=== PATIENT | female | born 1985 | race Caucasian/White ===

== ENCOUNTER 2017-08-26 23:04 | Inpatient (IN) | payer OTHER ==
[~2017-08-26] VITALS: Ht 162.6 cm; Wt 85.5 kg
--- NOTE | ~2017-08-26 | O ---
[facility] [place] [address] OPERATIVE REPORT Name: JANUSZ SOTOMAYOR Room #: 423-1 [facility] IN M.R.#: [id number] Admission: 08/27/17 Attend Phys: Jamaal Alberto Discharge: 08/30/17 Date of : 81 Report #: [id number] THIS REPORT FOR: //name// CC: Dr Priya Torrez DATE OF SERVICE: 08/29/2017 PREOPERATIVE DIAGNOSES: 1. Biliary colic with dyskinesia. 2. Anxiety. 3. Constipation. 4. Chronic pain. 5. Gastroparesis POSTOPERATIVE DIAGNOSES: 1. Biliary colic with dyskinesia, chronic cholecystitis, and gallbladder cholesterolosis. 2. Anxiety. 3. Constipation. 4. Chronic pain. 5. Gastroparesis SURGEON: Mark Adames MD ENERGY TECHNICIAN: CLARITZA Salmon. PROCEDURE: Laparoscopic cholecystectomy with intraoperative cholangiogram. ANESTHESIA: General endotracheal anesthesia and local anesthetic. ESTIMATED BLOOD LOSS: 5 mL. SPECIMEN: Gallbladder. COMPLICATIONS: None appreciated. INDICATIONS FOR PROCEDURE: This is a 31-year-old female patient with history of gastroparesis with a 4-month history of progressive right-sided abdominal pain, radiating to her right flank. Her pain has been constant, but is worsened around her menstrual periods. She has also had low-grade fever for which she has been taking ibuprofen. In addition to this, she complains of nausea, vomiting and postprandial bloating. A CT of the abdomen and pelvis and abdominal ultrasound were essentially normal with no evidence for gallstones. Recent transvaginal and pelvic ultrasound was essentially negative. [facility] [address] [place] [address] OPERATIVE REPORT Name: JANUSZ SOTOMAYOR Room #: 423-1 [facility] IN M.R.#: [id number] Admission: 08/27/17 Attend Phys: Jamaal Alberto Discharge: 08/30/17 Date of : 81 Report #: [id number] patient underwent a PIPIDA scan showing a low gallbladder ejection fraction of 18% with reproduction of her symptoms with the CCK. The patient presents now for laparoscopic cholecystectomy with cholangiogram. OPERATIVE FINDINGS: Upon entrance into the abdominal cavity, the liver, stomach, small bowel and colon in the surrounding area appeared otherwise normal. The gallbladder itself appeared to be chronically inflamed with omental adhesions to the gallbladder with no acute inflammatory changes. The critical view consisting of the cystic artery, cystic duct and lower edge of the gallbladder forming a window through which the liver was visible was seen prior to clipping the cystic duct for cholangiogram. The cholangiogram showed no filling defects and free flow of contrast into the duodenal sweep without biliary ductal dilatation. Three clips remained on the cystic duct stump after its division; one clip remained on the cystic artery stump as well. No other significant intra-abdominal pathology was seen. There was no evidence for iatrogenic injury. The small bowel and colon in the pelvis appeared normal. There was no evidence for an abdominal wall hernia. The gallbladder was opened on the back table, whereby no gallstones were present and cholesterolosis was evident. DESCRIPTION OF PROCEDURE IN DETAIL: After the risks, benefits and expectations of the operation were discussed in detail with the patient, informed consent was obtained. The patient was identified in the preoperative holding area. She was given IV antibiotics as documented in the chart in line with SCIP metrics. The patient was then taken to the operating room and she was placed in the supine position. SCDs were placed on the patient's bilateral lower extremities and pneumatic compression was initiated. The patient was then given IV sedation and she was intubated without incident. A time-out was performed to identify the correct patient and procedure. Local anesthetic was infiltrated into the skin and subcutaneous tissue supraumbilically several centimeters above the umbilicus where a vertical incision was made. Dissection was carried down to the fascia. The 11 mm Visiport was then placed intraperitoneally with a 0-degree angled laparoscope. Pneumoperitoneum was achieved with insufflation of carbon dioxide to 15 mmHg. A 30-degree angled laparoscope was then inserted. A subxiphoid 5 mm and right subcostal 5 mm ports x 2 were placed under direct visualization after local anesthetic was infiltrated into the skin and subcutaneous tissue and appropriately sized incisions were made. Operative findings were as noted above. The dome of the gallbladder was retracted in a cephalad direction. The omental adhesions to gallbladder were carefully taken down with the ultrasonic dissector. The gallbladder peritoneum was then scored medially and laterally with the ultrasonic dissector. Dissection was carried out around the cystic artery and cystic duct to identify both structures as the only two structures [address] [address] OPERATIVE REPORT Name: JANUSZ SOTOMAYOR Room #: 423-1 [facility] IN M.R.#: [id number] Admission: 08/27/17 Attend Phys: Jamaal Alberto Discharge: 08/30/17 Date of : 81 Report #: [id number] entering the gallbladder. The critical view of safety as described above was seen. A clip was then placed on the cystic duct at its junction with the neck of the gallbladder. A ductotomy was created and cholangiogram was inserted. Cholangiogram findings are as noted above. The cholangiocatheter was then removed and the cystic duct was triply clipped distal to the ductotomy. The duct was divided at the ductotomy site with the ultrasonic dissector with a good seal. The cystic artery was singly clipped and divided leaving a single clip on the cystic artery stump. Division of the artery was with the ultrasonic dissector as well with good hemostasis. The gallbladder was then dissected out of the liver bed without entrance into the gallbladder or liver bed. The gallbladder was detached from the liver, placed in an Endopouch and removed through the supraumbilical port. An 0 PDS suture was then placed with the [place]-Merle laparoscopic fascial closure device under direct visualization. The suture was tagged and the port was replaced. The liver bed was reexamined for hemostasis. The abdominal cavity was then briefly surveyed and no pathology was seen. The 11 mm port was then removed and the suture was tied under direct visualization to ensure no incorporation of intra-abdominal content. The abdominal cavity was then desufflated and the remaining ports were removed. Interrupted subcuticular 4-0 Monocryl sutures and Dermabond were used to close the skin incisions. The patient tolerated the procedure well. She was awakened, extubated, and taken to recovery room in stable condition with no apparent intraoperative complications. <ELECTRONICALLY SIGNED> By: Mark Adames MD, FACS 08/30/172003 [id number] Mark Adames MD, FACS /nt
[2017-08-26 23:19] VITALS: BP 143/92
[2017-08-26 23:31] LABS: URINE BILIRUBIN NEGATIVE (Negative); URINE BLOOD NEGATIVE (Negative); URINE CLARITY CLEAR; URINE COLOR YELLOW; URINE GLUCOSE-RANDOM* NEGATIVE (Negative); URINE KETONES NEGATIVE (Negative); URINE LEUKOCYTES NEGATIVE (Negative); URINE NITRITE NEGATIVE (Negative); URINE PROTEIN (DIPSTICK) NEGATIVE (Negative); URINE SPECIFIC GRAVITY 1.025 (1.005-1.035); URINE UROBILINOGEN 0.2 E.U./dl (0.2-1.0)
[2017-08-26 23:58] LABS: ABSOLUTE NEUTROPHILS 5.4 thou/uL (1.4-8.2); BASOPHILS 0.8 % (0.0-2.0); EOSINOPHILS 4.5 % (0.0-3.0); HEMATOCRIT 39.7 % (37.0-47.0); HEMOGLOBIN 13.7 gm/dL (12.0-15.0); LYMPHOCYTES 20.4 % (24.0-44.0); MCH 31.5 pg (26.0-34.0); MCHC 34.4 g/dL (28.0-37.0); MCV 91.5 fL (80.0-100.0); MONOCYTES 8.3 % (1.0-8.0); PLATELET COUNT 300 thou/uL (150-400); RBC 4.34 mil/uL (4.20-5.00); RDW 13.2 % (10.5-14.5); WBC 8.2 thou/uL (4.0-11.0)
[2017-08-27 00:05] LABS: CALCIUM 9.1 mg/dL (8.5-10.1); CREATININE 0.8 mg/dL (0.6-1.0); POTASSIUM 4.1 mmol/L (3.5-5.1)
[2017-08-27 00:11] LABS: ALBUMIN 3.5 g/dL (3.4-5.0); DIRECT BILIRUBIN 0.1 mg/dL (<0.1-0.3); TOTAL BILIRUBIN 0.5 mg/dL (<0.1-1.0); TOTAL PROTEIN 6.8 g/dL (6.4-8.2)
[2017-08-27] MEDS ORDERED: CITRATE OF MAG296 ML PO (01:17)
[2017-08-27] MEDS ORDERED: COLACE100 MG PO (01:17)
[2017-08-27] MEDS ORDERED: PREDNISONE50 MG PO (01:17)
[2017-08-27 03:17] VITALS: BP 150/87
[2017-08-27 03:33] VITALS: BP 136/78
[2017-08-27 03:40] VITALS: BP 153/93
[2017-08-27] MEDS ORDERED: CYMBALTA60 MG PO (03:45)
[2017-08-27] MEDS ORDERED: FLEXERIL PO (03:46)
[2017-08-27] MEDS ORDERED: UNICOMPLEX M TA1 TA1 PO (03:47)
[2017-08-27] MEDS ORDERED: CLONAZEPAM 1 MG1 M1 PO (03:47)
[2017-08-27] MEDS ORDERED: PROTONIX 20 MG20 M1 PO (03:48)
[2017-08-27 07:12] VITALS: BP 124/51
[2017-08-27 15:48] VITALS: BP 136/76
[2017-08-27 19:35] VITALS: BP 152/88
[2017-08-28 07:15] VITALS: BP 124/72
[2017-08-28 15:15] VITALS: BP 122/76
[2017-08-28 19:15] VITALS: BP 142/84
[2017-08-29] VITALS (9 sets, daily range): BP systolic 115–142; BP diastolic 59–97
[2017-08-30 05:02] VITALS: BP 141/75
[2017-08-30 05:27] LABS: ABSOLUTE NEUTROPHILS 6.1 thou/uL (1.4-8.2); BASOPHILS 0.1 % (0.0-2.0); EOSINOPHILS 0.1 % (0.0-3.0); HEMATOCRIT 37.5 % (37.0-47.0); HEMOGLOBIN 12.6 gm/dL (12.0-15.0); LYMPHOCYTES 25.8 % (24.0-44.0); MCH 31.1 pg (26.0-34.0); MCHC 33.7 g/dL (28.0-37.0); MCV 92.4 fL (80.0-100.0); MONOCYTES 8.5 % (1.0-8.0); PLATELET COUNT 263 thou/uL (150-400); POLYS 65.5 % (36.0-66.0); RBC 4.06 mil/uL (4.20-5.00); RDW 13.3 % (10.5-14.5); WBC 9.4 thou/uL (4.0-11.0)
[2017-08-30 05:46] LABS: CALCIUM 8.8 mg/dL (8.5-10.1); CREATININE 0.7 mg/dL (0.6-1.0); POTASSIUM 3.8 mmol/L (3.5-5.1)
[2017-08-30 07:30] VITALS: BP 152/93
[2017-08-30] MEDS ORDERED: CARISOPRODOL 3350 MG PO (09:09)
[2017-08-30] MEDS ORDERED: OXYCODONE HCL 55 MG PO (09:10)
[2017-08-30] MEDS ORDERED: MIRALAX17 GM PO (09:10)
[2017-08-30] MEDS ORDERED: ATIVAN0.5 MG PO (09:11)
[2017-08-30] MEDS ORDERED: HYDROCORTISONE30 G9 TOP (09:11)
[2017-08-30 09:41] VITALS: BP 152/93
[2017-08-30 09:54] VITALS: BP 152/93
== END 2017-08-30 13:14 | disposition home or self-care (01) | DRG 418 ==
LOC: ER 23:04 → EROBS 08-27 02:48 → 4E 08-27 02:48
PROVIDERS: Emergency Medicine; Surgery
PROC: 0FT44ZZ Resection of Gallbladder, Percutaneous Endoscopic Approach (ICD-10-PCS; principal; 2017-08-29)
PROC: BF131ZZ Fluoroscopy of Gallbladder and Bile Ducts using Low Osmolar Contrast (ICD-10-PCS; principal; 2017-08-29)
DX: K81.0 Acute cholecystitis (principal); G95.29 Other cord compression; F32.9 Major depressive disorder, single episode, unspecified; K82.8 Other specified diseases of gallbladder; G89.4 Chronic pain syndrome; F41.9 Anxiety disorder, unspecified; K59.00 Constipation, unspecified; I88.0 Nonspecific mesenteric lymphadenitis; K81.1 Chronic cholecystitis; K31.84 Gastroparesis; Z79.899 Other long term (current) drug therapy; Z88.0 Allergy status to penicillin; Z88.2 Allergy status to sulfonamides; Z88.5 Allergy status to narcotic agent; Z88.8 Allergy status to other drugs, medicaments and biological substances; Z80.3 Family history of malignant neoplasm of breast; Z83.3 Family history of diabetes mellitus; Z82.49 Family history of ischemic heart disease and other diseases of the circulatory system
CPT/HCPCS: 10084; 50010; 50101; 62110; 62900; 70005